=== PATIENT | male | born 2000 | race African-American/Black ===

== ENCOUNTER 2021-03-13 02:49 | Inpatient (IN) | payer OTHER ==
[~2021-03-13] VITALS: Ht 182.9 cm; Wt 82.6 kg
[~2021-03-13 02:49] MED LIST: IBUPROFEN 600600 M1 PO
[2021-03-13 03:22] LABS: URINE BILIRUBIN NEGATIVE (Negative); URINE BLOOD 2+ (Negative); URINE CLARITY SL CLOUDY; URINE COLOR YELLOW; URINE GLUCOSE-RANDOM* NEGATIVE (Negative); URINE KETONES NEGATIVE (Negative); URINE NITRITE-REFLEX NEGATIVE (Negative); URINE PROTEIN (DIPSTICK) 2+ (Negative); URINE SPECIFIC GRAVITY >= 1.030 (1.005-1.035); URINE UROBILINOGEN 0.2 E.U./dl (0.2-1.0)
[2021-03-13 03:25] LABS: ABSOLUTE NEUTROPHILS 10.3 thou/uL (1.4-8.2); BASOPHILS 0.4 % (0.0-2.0); EOSINOPHILS 0.1 % (0.0-3.0); HEMATOCRIT 44.3 % (42.0-52.0); HEMOGLOBIN 14.6 gm/dL (14.0-18.0); LYMPHOCYTES 5.1 % (24.0-44.0); MCH 30.8 pg (26.0-34.0); MCV 93.4 fL (80.0-100.0); MONOCYTES 6.3 % (1.0-8.0); PLATELET COUNT 280 thou/uL (150-400); POLYS 88.1 % (36.0-66.0); RBC 4.75 mil/uL (4.50-6.00); RDW 12.7 % (10.5-14.5); WBC 11.7 thou/uL (4.0-11.0)
[2021-03-13 03:27] LABS: CALCIUM 9.1 mg/dL (8.5-10.1); CREATININE 1.7 mg/dL (0.7-1.3); POTASSIUM 3.8 mmol/L (3.5-5.1)
[2021-03-13 03:29] LABS: URINE LEUKOCYTES-REFLEX 1+ (Negative)
[2021-03-13 03:31] LABS: AMP/METHAMP Negative (Negative); BACTERIA-REFLEX 1-9 Few /HPF (None Seen); BARBITURATES Negative (Negative); BENZODIAZEPINES Negative (Negative); COARSE GRANULAR CASTS 0-3 Few /LPF (None Seen); COCAINE Negative (Negative); HYALINE CASTS 0-3 Few /LPF (None Seen); METHADONE Negative (Negative); MUCUS 0-3 Light strn/LPF (None Seen); OPIATES Negative (Negative); PCP Negative (Negative); SQUAMOUS 0-3 Few /LPF (0-3); WBC CLUMPS Moderate (None Seen)
[2021-03-13 03:32] LABS: CRYSTALS None Seen /LPF (None Seen)
[2021-03-13 03:32] LABS: ALBUMIN 4.2 g/dL (3.4-5.0); TOTAL BILIRUBIN 0.3 mg/dL (0.2-1.0); TOTAL PROTEIN 8.1 g/dL (6.4-8.2)
[2021-03-13] MEDS ORDERED: NOHOMEMEDICATIONS (03:54)
[2021-03-13 05:34] VITALS: BP 113/46
[2021-03-13 06:23] VITALS: BP 127/50
--- NOTE | 2021-03-13 07:04 | EKG ---
[place] [address] [facility] [place] [address] ELECTROCARDIOGRAM REPORT Name: MARQUIS Claudy BARGER Room #: 170-1 ADM IN M.R.#: [id number] Admission: 03/13/21 Attend Phys: Placido Tierney MD Discharge: Date of : 00 Report #: [id number] [facility] ED Test Date: 2021-03-13 Test Time: 04:28:57 Pat Name: MARQUIS BARGER Department: Room: 170 Gender: M Scheduling Agent: daysi : 2000 Requested By: Mac Ahmadi Order Number: [id number] MD: Devonte Moreno Measurements Intervals [place] Rate: 92 P: 95 AL: 146 QRS: 94 QRSD: 85 T: 28 QT: 335 QTc: 415 Interpretive Statements Sinus rhythm Borderline right axis deviation ST elev, probable normal early repol pattern Baseline wander in lead(s) V2 No previous ECG available for comparison Electronically Signed On 03-13-2021 7:03:52 CDT by Devonte Moreno [email or web address] <ELECTRONICALLY SIGNED> By: Devonte Moreno MD, [facility] 03/13/21 0703 [id number] 0428 Devonte Moreno MD, FACC /EPI
[2021-03-13 09:40] VITALS: BP 134/62
--- NOTE | 2021-03-13 10:47 | NUR ---
Pt arrived in the unit at approx 5:30am as reported by night order selector nurse. Drowsy, rousable but cannot keep awake to make conversations; grandmother and brother at the bedside. On telemetry; ST- Dr Freeman informed; no complains and signs of chest pain, crushing sensation and heaviness. Assisted in ADLs. Falls bundle in place. Seizure precaustions observed. On nothing per orem- pt's relatives informed re: this. With SL at L AC- NS at 126cc/hr started as ordered; on IV antibiotics as well. Admission assessment, history and education done with assistance from pt's relatives; admission forms signed by pt's grandmother. With consult for Dr Gomez- called answering service- a/w call back. To continue monitoring patient. With relative at bedside; informed them re: visitation policy, that only 2 visitors allowed in the bedside- pt's grandmother acknowlesged understanding re: this.
--- NOTE | 2021-03-13 11:13 | NUR ---
PT ADMITTED RELATED TO ACUTE ENCEPHALOPATHY. CM REVIEWED CHART AND SPOKE WITH CARE TEAM. CM MET WITH PT, KIRILL CONTEH (GRANDMOTHER) [phone], AND REYES TATE AT BEDSIDE THIS DAY. PT WAS NOT A&O EYES WERE OPEN BUT PT WASN'T FOCUSING AND DIDN'T PARTICIPATE IN ASSESSMENT. BROTHER AND GM INDICATED THAT PT HAD BEEN LIVING IN A HOUSE WITH HIS COUSIN WITH NO STEPS TO ENTER AND NO STEPS INSIDE. 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 NO DME, NO PCP, NO [employer], AND UNEMPLOYED. 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 THEY INDICATED THAT PT HAD GOTTEN OUT OF ASSISTED RECENTLY AND THAT THEY BELIEVE PT'S PAROL OFFICER HAD BEEN NOTIFIED OF HOSPITALIZATION. CM NOTIFIED FAMILY THAT [facility] WOULD VISIT WITH THEM REGARDING POSSIBLE FINCIAL ASSISTANCE PROGRAMS. AWAITING NEURO CONSULT. CM FOLLOWING REGARDING DC PLANNING.
[2021-03-13 15:10] VITALS: BP 122/74
[2021-03-13 19:50] VITALS: BP 119/70
[2021-03-14 03:40] VITALS: BP 124/76
[2021-03-14 04:45] LABS: CALCIUM 8.5 mg/dL (8.5-10.1); CREATININE 1.1 mg/dL (0.7-1.3); HEMATOCRIT 40.2 % (42.0-52.0); HEMOGLOBIN 13.4 gm/dL (14.0-18.0); MCH 31.5 pg (26.0-34.0); MCHC 33.5 g/dL (28.0-37.0); POTASSIUM 3.9 mmol/L (3.5-5.1); RBC 4.27 mil/uL (4.50-6.00); RDW 13.2 % (10.5-14.5); WBC 7.5 thou/uL (4.0-11.0)
--- NOTE | 2021-03-14 06:34 | NUR ---
patient alert and awake part of noc no c/o pain or discomfort. iv alarming, patient unable to keep in postion to allow to infuse without difficulties. able to answer question with a delayed response. up with assist to side of bed to use urinal x1. patient continues with alert and confused. will continue to monitor.
[2021-03-14 08:14] VITALS: BP 112/62
--- NOTE | 2021-03-14 12:22 | NUR ---
ASSUMED CARE OF PATIENT AT SHIFT CHANGE. ASSESSMENT CHARTED. ABX NOT ADMINISTERED; IV WAS DISCONTINUED. PROVIDER WAS NOTIFIED. MRI WAS CANCELLED. PROVIDER AND NEURO BOTH AGREE ACUTE MENTAL STATUS WAS LIKELY CAUSED BY DRUG USE. PROVIDER WILL DISCHARGE THIS PATIENT THIS DAY. FAMILY AT BEDSIDE; PATIENT ALERT AND ORIENTED NOW AND STEADY ON FEET INDEPENDENTLY. NO OTHER CONCERNS AT THIS TIME. WILL CONTINUE TO MONITOR AND FOLLOW PLAN OF CARE
[2021-03-14 12:50] VITALS: BP 112/62
== END 2021-03-14 14:28 | disposition home or self-care (01) | DRG 682 ==
LOC: ER 02:49 → EROBS 05:07 → 4W 05:07
PROVIDERS: Emergency Medicine; Psychiatry & Neurology Neuromuscular Medicine; ADMIT Hospitalist; ATTEND Hospitalist
DX: N17.9 Acute kidney failure, unspecified (principal); G92 Toxic encephalopathy; N39.0 Urinary tract infection, site not specified; F12.90 Cannabis use, unspecified, uncomplicated; E86.0 Dehydration; Z20.822 Contact with and (suspected) exposure to COVID-19
CPT/HCPCS: 10045